=== PATIENT | female | born 1990 | race Caucasian/White ===

== ENCOUNTER 2019-10-19 10:15 | Day surgery (SDC) | payer BC ==
[~2019-10-19 10:15] MED LIST: AMPICILLIN SODIUM 2 GM in NORMAL SALINE 100 ML IV PRN
[2019-10-19] MEDS ORDERED: OXYMETAZOLINE HCL 0.05% NASAL SPRAY 15 ML BOTTLE ONE (10:26)
[2019-10-19] MEDS ORDERED: TRIAMCINOLONE ACETONIDE INJ 40 MG/1 ML VIAL ONE (10:26)
[2019-10-19] MEDS ORDERED: COCAINE HCL 4% TOPICAL SOLN 4 ML ONE (10:26)
[2019-10-19] MEDS ORDERED: LIDOCAINE 2%/EPINEPHRINE INJ 1.7 ML CARTRIDGE ONE (10:27)
[2019-10-19] MEDS ORDERED: FENTANYL CITRATE INJ/PF 100 MCG/2 ML AMPUL ONE ×2 (10:28→13:17)
[2019-10-19] MEDS ORDERED: ONDANSETRON HCL INJ/PF 4 MG/2 ML SDV ONE (10:28)
[2019-10-19] MEDS ORDERED: PROPOFOL INJ 200 MG/20 ML VIAL IV ONE (10:29)
[2019-10-19] MEDS ORDERED: MIDAZOLAM 2 MG/2 ML INJ ONE (10:29)
[2019-10-19] MEDS ORDERED: DEXAMETHASONE SOD PHOSPHATE INJ 4 MG/1 ML VIAL ONE (10:29)
[2019-10-19] MEDS ORDERED: SUCCINYLCHOLINE CHLORIDE INJ 200 MG/10 ML VIAL ONE (10:30)
--- NOTE | 2019-10-19 12:24 | Operative Report ---
Operative Report-[facility] Operative Report: Date: 19 October 2019 History: Patient presents with a history of bilateral eustachian tube dysfun ction. Patient underwent an adenotonsillectomy previously at a different hospital. Physical exam revealed retracted tympanic membranes bilaterally and residual adenoid tissue near the torus tubarius bilaterally. Patient presents today for a BMT T, balloon dilation bilateral eustachian tubes and revision adenoidectomy Preoperative Diagnosis: 1. Eustachian tube dysfunction. 2. Adenoid hypertrophy Postoperative diagnosis: Same as above Procedure: 1. Eustachian tube balloon dilation/reconstruction nasopharynx [CPT = 66496], right side 2. Eustachian tube balloon dilation/reconstruction nasopharynx [CPT = 28945], left side 3. Myringotomy with insertion tympanostomy tube, bilateral 4. Rigid nasal endoscopy, bilateral 5. Revision adenoidectomy Surgeon: Hussein Mcguire MD, FACS, [facility] Anesthesia: GETA Description of procedure: After receiving informed consent from the patient, the patient was transported to the operating room and placed supine on the operating room table. After successful induction and intubation by anesthesia cottonoids saturated with 4% cocaine were placed into both nasal cavities for approximately 5 minutes. They were then removed. Nasal septum and inferior turbinate were injected with 2% Xylocaine with 100,000 epinephrine. The cottonoids were placed back into the nasal cavity. The operating microscope was brought into the field and under binocular microscopy a properly sized ear speculum was placed into the right ear. The tympanic membrane was visualized and a radial incision was made in the anterior inferior quadrant. Middle ear space was dry.. A Paparella PE tube was then placed into this incision and otic drops placed into the external auditory canal. A similar procedure was performed on the left side. The middle ear space was dry. Attention was then directed to the eustachian tube balloon dilation portion of the procedure. The cottonoids were removed from the nasal cavity. A rigid 30 degree nasal endoscope along with the AREA eustachian tube balloon dilation system was inserted in the right nasal cavity. The torus tubarius was visualized. Under endoscopic guidance the balloon was inserted into the right eustachian tube lumen. The balloon was then insufflated to 12 atmospheric pressure for 2 minutes. The balloon was then let down and removed from the eustachian tube lumen. The endoscope and balloon system was then removed from the nasal cavity. A similar procedure was performed on the left side. The patient was then turned 90 degrees and placed in slight Trendelenburg. A shoulder roll and head drape were placed. McIvor mouthgag inserted atraumatically into the oral cavity this was then opened up. Soft palate was palpated found to be normal. Red catheters were inserted on each nasal cavity and brought out to elevate the soft palate. A mirror was used to view the nasopharynx. Residual adenoid tissue was noted superiorly and laterally. Next using the PEAK system and adenoidectomy was performed. Hemostasis was obtained using the same system. The oral cavity was then irrigated with copious muscle normal saline no bleeding was noted. An orogastric tube inserted into the stomach, gastric contents were aspirated. The McIvor mouth gag was then let down and reopened no bleeding was noted. This was then removed from the patient. The patient tolerated the procedure well without any complications. Patient was then given back to anesthesia who successfully extubated the patient without any complications. Estimated blood loss: 5 mL Fluids: 500 mL The patient was transferred to the postanesthesia care unit in stable condition with spontaneous respirations.
[2019-10-19] MEDS ORDERED: HYDROCOD/ACETAMIN 7.5-325 MG/15 ML ORAL SOLN UDCUP ONE (12:39)
== END 2019-10-19 14:15 | disposition home or self-care (01) ==
LOC: SC 10:15
PROVIDERS: ATTEND Otolaryngology
DX: H69.83 Other specified disorders of Eustachian tube, bilateral (principal); J35.2 Hypertrophy of adenoids; Z79.51 Long term (current) use of inhaled steroids; K21.9 Gastro-esophageal reflux disease without esophagitis; I34.1 Nonrheumatic mitral (valve) prolapse
CPT/HCPCS: 42950; 42836; 00170; J0290; J2250; J3490 ×3; J1100; J3010; J0330; J2405; J7050; J2704; 170; J3301

== ENCOUNTER 2020-03-21 10:35 | Day surgery (SDC) | payer BC ==
[2020-03-21] MEDS ORDERED: COCAINE HCL 4% TOPICAL SOLN 4 ML ONE (10:57)
[2020-03-21] MEDS ORDERED: LIDOCAINE 2%/EPINEPHRINE INJ 1.7 ML CARTRIDGE ONE (10:57)
[2020-03-21] MEDS ORDERED: OXYMETAZOLINE HCL 0.05% NASAL SPRAY 15 ML BOTTLE ONE (10:57)
[2020-03-21] MEDS ORDERED: BALANCED SALT IRRIG SOLN COMB2 15 ML BOTTLE ONE (10:59)
[2020-03-21] MEDS ORDERED: MIDAZOLAM 2 MG/2 ML INJ ONE (11:01)
[2020-03-21] MEDS ORDERED: FENTANYL CITRATE INJ/PF 100 MCG/2 ML AMPUL ONE (11:01)
--- NOTE | 2020-03-21 12:47 | Operative Report ---
Operative Report-[facility] Operative Report: Date: 21 March 2020 History: 29-year-old female with a history of a previous bilateral eustachian tu be balloon plasty and a BMT T, had extrusion of the left PE tube resulting in return of symptomatology. Physical exam revealed that the right PE tube was surrounded by cerumen and partially extruded. Patient presents today for a BMT T and a bilateral eustachian tube balloon plasty. Informed consent was obtained from the patient Preoperative Diagnosis: 1. Eustachian tube dysfunction, bilateral Postoperative diagnosis: Same as above Procedure: 1. Eustachian tube balloon dilation/reconstruction nasopharynx [CPT = 22337], right 2. Eustachian tube balloon dilation/reconstruction nasopharynx [CPT = 13344], left 3. Myringotomy with insertion tympanostomy tube, bilateral 4. Rigid nasal endoscopy, bilateral 5. Removal foreign body, left ear 6. Removal foreign body, right ear Surgeon: Hussein Mcguire MD, FACS, [facility] Anesthesia: GETA Description of procedure: After receiving informed consent from the patient, the patient was transported to the operating room and placed supine on the operating room table. After successful induction and intubation by anesthesia cottonoids saturated with 4% cocaine were placed into both nasal cavities for approximately 5 minutes. They were then removed. Nasal septum and inferior turbinate were injected with 2% Xylocaine with 100,000 epinephrine. The cottonoids were placed back into the nasal cavity. The operating microscope was brought into the field and under binocular microscopy a properly sized ear speculum was placed into the right ear. The tympanic membrane was visualized and the partially extruded PE tube was removed. A radial incision was made in the anterior inferior quadrant. Middle ear space normal. A Alfredo PE tube was then placed into this incision and otic drops placed into the external auditory canal. A similar procedure was performed on the left side. The extruded PE tube was removed from the external auditory canal. Attention was then directed to the eustachian tube balloon dilation portion of the procedure. The cottonoids were removed from the nasal cavity. A rigid 30 degree nasal endoscope along with the AREA eustachian tube balloon dilation system was inserted in the left nasal cavity. The torus tubarius was visualized. Under endoscopic guidance the balloon was inserted into the left eustachian tube lumen. The balloon was then insufflated to 12 atmospheric pressure for 2 minutes. The balloon was then let down and removed from the eustachian tube lumen. The endoscope and balloon system was then removed from the nasal cavity. A similar procedure was performed on the right side. The patient tolerated the procedure well without any complications. Patient was then given back to anesthesia who successfully extubated the patient without any complications. Estimated blood loss: 5 mL Fluids: 200 mL The patient was transferred to the postanesthesia care unit in stable condition with spontaneous respirations.
[2020-03-21] MEDS: FENTANYL CITRATE INJ/PF 100 MCG/2 ML AMPUL ONE ×2 (12:50→13:05)
[2020-03-21] MEDS ORDERED: HYDROCODONE/ACETAMINOPHEN 5-325 MG TABLET ONE (13:20)
== END 2020-03-21 13:55 | disposition home or self-care (01) ==
LOC: SC 10:35
PROVIDERS: ATTEND Otolaryngology
DX: H69.83 Other specified disorders of Eustachian tube, bilateral (principal); H61.22 Impacted cerumen, left ear; T85.698D Other mechanical complication of other specified internal prosthetic devices, implants and grafts, subsequent encounter; X58.XXXD Exposure to other specified factors, subsequent encounter; J35.2 Hypertrophy of adenoids; Z79.899 Other long term (current) drug therapy; K21.9 Gastro-esophageal reflux disease without esophagitis; I34.1 Nonrheumatic mitral (valve) prolapse; Z03.818 Encounter for observation for suspected exposure to other biological agents ruled out
CPT/HCPCS: 87635; 42950; 69436; 69205; J2250; J3490 ×4; J3010; C9803; 126; C9046